=== PATIENT | male | born 1965 | race African-American/Black ===

== ENCOUNTER → 2025-04-15 | Outpatient (CLI) | payer OTHER ==
[~2025-04-15] MED LIST: ASPI-556 PO; LISI2.5T13 PO; METF-446 PO; OMEG1CAP6 PO; SIMV-43 PO; UBID100C45 PO
--- NOTE | 2025-04-16 11:35 | HMCIMG ---
EXAM: CT Cardiac calcium scoring. CLINICAL HISTORY: Screening. TECHNIQUE: Thin collimated axial CT cardiac images were obtained. A CT scan is done according to ALARA (As Low As Reasonably Achievable). CONTRAST: None. COMPARISON: None provided. FINDINGS: Calcium Score: VESSEL Number of lesions Volume mm3 Equi. Mass/mg Calcium score LM 1 41.3 - 48.6 LAD 7 1131.9 - 1457.8 LCX 1 211.3 - 273.5 RCA 2 754.4 - 1005.2 Total 11 2138.9 - 2785.1 IMPRESSION: The total calcium score is 2785.1. This corresponds to the 99th percentile. /[place]
== END | disposition home or self-care (01) ==
LOC: RAH 12:19
PROVIDERS: ATTEND Internal Medicine Cardiovascular Disease
DX: Z13.6 Encounter for screening for cardiovascular disorders (principal); E78.5 Hyperlipidemia, unspecified
CPT/HCPCS: 75571